=== PATIENT | male | born 1965 | race Caucasian/White ===

== ENCOUNTER 2024-07-19 09:04 | Emergency (ER) | payer MEDICAID ==
[~2024-07-19] VITALS: Ht 175.3 cm; Wt 85.0 kg
[2024-07-19] MEDS ORDERED: IBUPROFEN 600MG TABLET PO ONE (09:15)
[2024-07-19 09:17] VITALS: O2SAT 99
[2024-07-19] MEDS: IBUPROFEN 600MG TABLET PO NR (11:26)
[2024-07-19] MEDS ORDERED: KETO10TA2 MT (12:04)
[2024-07-19] MEDS ORDERED: DEXAMETHASONE 4MG TABLET PO ONE (12:15)
[2024-07-19] MEDS: DEXAMETHASONE 4MG TABLET PO NR (12:45)
[2024-07-19 13:05] VITALS: BP 126/64; PULSE 50; RESP 14; TEMP 36.9; O2SAT 97
== END 2024-07-19 13:21 | disposition home or self-care (01) ==
LOC: ER 09:39
DX: M79.671 Pain in right foot (principal); I10 Essential (primary) hypertension; Z86.73 Personal history of transient ischemic attack (TIA), and cerebral infarction without residual deficits
CPT/HCPCS: 99284; 73610; 73630; 93005; J8540